=== PATIENT | male | born 1945 | race Caucasian/White ===

== ENCOUNTER → 2018-08-09 | Outpatient (CLI) | payer OTHER ==
[~2018-08-09] MED LIST: ALLOPURINOL; ALLOPURINOL 30300 M2 PO; ALTACE; ALTACE2.5 MG PO; ANDROGEL75 GM TOP; ASPIRIN325 PO; AUGMENTIN 875875 M1 PO; BAYER CHEWABLE81 MG PO; CARVEDILOL25 MG PO; CLOPIDOGREL; COLACE100 MG PO; COREG; FLONASE 0.05%50 MCG NASAL; HYDROCODON-ACE1 EAC5 PO; HYDROCODON-ACE1 EAC7; METFORMIN HCL500 MG PO; MIRALAX17 GM PO; PERCOCET PO; PHENERGAN 25 MG25 M1 PO; PLAVIX 75 MG TA75 M1 PO; TRAMADOL 50 MG50 MG PO; ULTRAM 50MG TAB50 MG; WELLBUTRIN SR150 MG PO
== END ==
LOC: M.WC 10:00
DX: E11.622 Type 2 diabetes mellitus with other skin ulcer (principal); I87.313 Chronic venous hypertension (idiopathic) with ulcer of bilateral lower extremity; L97.811 Non-pressure chronic ulcer of other part of right lower leg limited to breakdown of skin; L97.821 Non-pressure chronic ulcer of other part of left lower leg limited to breakdown of skin; I89.0 Lymphedema, not elsewhere classified; E11.40 Type 2 diabetes mellitus with diabetic neuropathy, unspecified; E66.9 Obesity, unspecified; G47.30 Sleep apnea, unspecified; I11.0 Hypertensive heart disease with heart failure; I50.9 Heart failure, unspecified; I25.10 Atherosclerotic heart disease of native coronary artery without angina pectoris; F41.9 Anxiety disorder, unspecified; Z68.35 Body mass index [BMI] 35.0-35.9, adult; Z96.643 Presence of artificial hip joint, bilateral; Z95.0 Presence of cardiac pacemaker; Z87.891 Personal history of nicotine dependence

== ENCOUNTER → 2018-08-14 | Outpatient (CLI) | payer OTHER | LOC: M.WC 05:10 | DX: I87.303 Chronic venous hypertension (idiopathic) without complications of bilateral lower extremity (principal); I89.0 Lymphedema, not elsewhere classified; I50.9 Heart failure, unspecified; E66.9 Obesity, unspecified; K21.9 Gastro-esophageal reflux disease without esophagitis; F41.9 Anxiety disorder, unspecified; Z68.35 Body mass index [BMI] 35.0-35.9, adult; Z87.891 Personal history of nicotine dependence ==